=== PATIENT | male | born 1975 | race Caucasian/White ===

== ENCOUNTER → 2020-03-06 | Outpatient (CLI) | payer OTHER ==
--- NOTE | 2020-03-07 09:21 | SLEEP ---
DATE OF STUDY: 03/06/2020 SLEEP STUDY REFERRING PHYSICIAN: Aruna Mock. STUDY: The patient is a 44-year-old who weighs 235 pounds with a BMI of 33. The patient had a sleep study and was found to have FRANKIE at an AHI of 14 per hour along with nocturnal hypoxia. As the patient was clinically symptomatic, was referred back for CPAP titration study. During the night study, the patient spent 417 minutes in bed and slept for 360 minutes with a sleep efficiency of 86%. Sleep latency was 11 minutes with a REM latency of 127 minutes. Sleep architecture showed increased stage 1 and stage 2 sleep, normal slow wave and normal REM sleep. EKG monitoring revealed normal sinus rhythm. No sustained arrhythmias observed. Average heart rate 60 beats per minute. No clinically significant PLM seen. The patient was started on CPAP at 5 cm water and titrated up to 9 cm water. At the final pressure, the patient slept for 74 minutes. The patient had supine sleep, but no REM sleep. The patient's AHI was reduced to 1 per hour and oxygen saturation remained above 92%. IMPRESSION: 1. Sleep apnea diagnosed by previous sleep study. 2. No clinically significant periodic limb movements. RECOMMENDATIONS: 1. CPAP at 9 cm water completely eliminated the patient's sleep apnea and should be used on a nightly basis. 2. Follow up in 4-6 weeks to assess compliance with CPAP and to document clinical improvement. 3. Weight loss is strongly advised. 4. Avoid [employer] depressants. 5. Cautioned regarding driving until symptoms of sleep apnea resolve with the use of CPAP. ABDIFATAH WALLACE MD DR: MARCELINO/akin JOB#: [id number] / [id number] ARUNA Nguyen MD
== END | disposition home or self-care (01) ==
LOC: RT 18:47
PROVIDERS: ATTEND Internal Medicine Critical Care Medicine
DX: G47.30 Sleep apnea, unspecified (principal)
CPT/HCPCS: 95811